=== PATIENT | male | born 1990 | race Caucasian/White ===

== ENCOUNTER 2016-02-22 21:36 | Emergency (ER) | payer OTHER ==
[2016-02-23] MEDS ORDERED: NORCO, ANEXSIA 5/325MG TABLET (HYDROcodone/ACETAMINOPHEN) As Ordered ONE (00:15)
[2016-02-23] MEDS ORDERED: METHOCARBAMOL 500 MG TAB As Ordered ONE (00:15)
--- NOTE | 2016-02-23 00:50 | REPUSA ---
CLINICAL HISTORY: Neck pain. TECHNIQUE: Multiple axial images were obtained through the cervical spine. Images were also reconstru cted in coronal and sagittal planes. The study was performed without IV contrast. COMMENTS: There is no fracture or spondylolisthesis visualized. The paraspinal soft tissues are unremarkable. T here are no lytic or blastic lesions. Straightening of cervical lordosis is seen, suggesting muscular spasm. There is evidence of minimal m ultilevel disk disease, demonstrated by minimal osteophytosis and endplate sclerosis. No significant disk herniation is noted at any level. Canal and foramina remain patent. IMPRESSION: 1. No fracture or spondylolisthesis. 2. Straightening of cervical lordosis is seen, suggesting muscular spasm. 3. Minimal multilevel spondylosis. Thank you for your kind referral of this patient.
[2016-02-23] MEDS ORDERED: KETOROLAC 30 MG/ML VIAL (J1885) As Ordered ONE (02:11)
--- NOTE | 2016-02-23 02:48 | EDDOCDS ---
Physician Documentation [facility] Name: Dmitry Alan Age: 25 yrs Sex: Male : 1990 Arrival Date: 02/22/2016 Time: 21:36 Bed I5 / M5 Private MD: Other - Complete Info On Cds Disposition: 02/23/16 02:43 Discharged to Home/Self Care. Impression: Unspecified injury of head, Cervicalgia, Sprain of unspecified parts of right shoulder girdle. - Condition is Stable. - Discharge Instructions: Head Injury, Adult, Shoulder Pain, Cervical Sprain. - Prescriptions for Robaxin 500 mg Oral Tablet - take 2 tablet by ORAL route every 6 hours As needed; 40 tablet. Ultram 50 mg Oral Tablet - take 1 tablet by ORAL route every 6 hours As needed MDD: 4 tabs; 20 tablet. - Medication Reconciliation, Local Pharmacy Hours form. - Follow up: Radha Rowe [facility]; When: 1 - 2 days; Reason: Recheck today's complaints, Continuance of care. - Problem is new. - Symptoms have improved. - Notes: USE MEDICATIONS INSTRUCTED, FOLLOW UP WITH YOUR DOCTOR, RETURN TO THE ER IF THE SYMPTOMS WORSEN OR BECOME CONCERNING Historical: - Allergies: no known allergies; - Home Meds: 1. none - PMHx: none; - PSHx: none; - Social history: Smoking status: Patient states was never smoker of tobacco. No barriers to communication noted, The patient speaks fluent Canadian, Speaks appropriately for age. - Family history: Not pertinent. - : The pt / caregiver states he / she is not on anticoagulants. Home medication list is obtained from the patient. - Exposure Risk Screening:: None identified. Vital Signs: 02/21 21:37 BP 134 / 59; Pulse 60; Resp 18 S; Temp 97.9(O); Pulse Ox 98% on R/A; Weight 88.9 kg / gr2 195.99 lbs (R); Height 5 ft. 9 in. (175.26 cm) (R); Pain 8/10; 02/22 00:19 Pain 8/10; cp1 02:16 Pain 7/10; cp1 02:47 BP 136 / 68; Pulse 68; Resp 20; Temp 98.0(O); Pulse Ox 99% on R/A; Pain 2/10; jmb 02/21 21:37 Body Mass Index 28.94 (88.90 kg, 175.26 cm) gr2 MDM: 00:03 Financial registration complete. pm4 00:04 [facility] Payment Agreement was scanned into [employer]. and attached to record. pm4 00:12 Apply Iliana Collar to Patient. ordered. ck7 00:12 HYDROcodone-acetaminophen 5 mg-325 mg 1 tabs PO once ordered. ck7 00:12 Methocarbamol 1 grams PO once ordered. ck7 00:13 CT Head Without Contrast Ordered. EDMS 00:13 CT Spine,Cervical W/o Contrast Ordered. EDMS 00:17 Shoulder, Complete Ordered. EDMS 02:09 ketorolac 60 mg IM once ordered. ck7 Administered Medications: 00:18 Drug: HYDROcodone-acetaminophen 1 tabs [hydrocodone 5 mg-acetaminophen 325 mg tablet (1 cp1 tabs)] Route: PO; 02:01 Follow up: Response: No significant change. cp1 00:18 Drug: Methocarbamol 1 grams [methocarbamol 500 mg tablet (2 tabs)] Route: PO; cp1 02:00 Follow up: Response: No significant change. cp1 02:15 Drug: ketorolac 60 mg [ketorolac 30 mg/mL (1 mL) injection solution (2 mL)] Route: IM; cp1 Site: right deltoid; Signatures: Dispatcher [employer] EDMS Cortney Hutson,RN Richar Lipscomb, RPA-C RPA-Cck7 Osman Metcalf RN RN jmb Montondo, Paul, Reg Reg pm4 Torri Vera LPN cp1 The chart was reviewed and I authenticate all verbal orders and agree with the evaluation and treatment provided.Attachments: 00:04 [facility] Payment Agreement pm4 MTDD
--- NOTE | 2016-02-23 02:48 | EDDOCDS ---
Nurse's Notes [facility] Name: Dmitry Alan Age: 25 yrs Sex: Male : 1990 Arrival Date: 02/22/2016 Time: 21:36 Bed I5 / M5 Private MD: Other - Complete Info On Cds Diagnosis: Unspecified injury of head;Cervicalgia;Sprain of unspecified parts of right shoulder girdle Presentation: 02/21 21:42 Presenting complaint: Patient states: doing a handstand and fell landing on his head. pml pain in right shoulder and neck denies LOC. Adult Sepsis Screening: The patient does not have new or worsening altered mentation. Patient's respiratory rate is less than 22. Systolic blood pressure is greater than 100. Patient has a qSOFA score of 0- Negative Sepsis Screen. Suicide/Homicide risk assessment- the patient denies having any suicidal and/or homicidal ideations and does not present with any other emotional, behavioral or mental health complaints. 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 Transition of care: patient was not received from another setting of care. 21:42 Acuity: ROXANN Level 4 pml 21:42 Method Of Arrival: Walkin/Carried/Asstd pml Triage Assessment: 21:43 General: Appears in no apparent distress, Behavior is appropriate for age, cooperative. pml Pain: Location: anterior aspect of right shoulder and right side of neck. HIV screening NA for this visit Offered previously. Musculoskeletal: Circulation, motion, and sensation intact Capillary refill < 3 seconds. Historical: - Allergies: no known allergies; - Home Meds: 1. none - PMHx: none; - PSHx: none; - Social history: Smoking status: Patient states was never smoker of tobacco. No barriers to communication noted, The patient speaks fluent Beninese, Speaks appropriately for age. - Family history: Not pertinent. - : The pt / caregiver states he / she is not on anticoagulants. Home medication list is obtained from the patient. - Exposure Risk Screening:: None identified. Screenin/17 00:16 Screening information is obtained from the patient. Fall risk: At risk due to prior [facility] history of falls. Assistance ADL's: requires no assistance with activities of daily living. Abuse/DV Screen: The patient / caregiver reports he/she is: not in a situation that causes fear, pain or injury. Nutritional screening: No deficits noted. home support is adequate. 02:44 Advance Directives: Currently, there is no health care proxy. There is no active DNR jmb order. There is no living will. There is no Power of Field Representative/Health Education. Assessment: 00:16 General: Appears uncomfortable, Behavior is appropriate for age, cooperative. Pain: jmb Location: neck and right arm and anterior aspect of right shoulder and right side of neck Pain currently is 7 out of 10 on a pain scale. Neurological: Level of Consciousness is awake, alert, obeys commands, Oriented to person, place, time, Gifted Teacher are equal bilaterally Speech is normal, Facial symmetry appears normal, Facial symmetry: tongue is midline. Cardiovascular: Capillary refill < 3 seconds Heart tones present Pulses are all present. Rhythm is regular. Respiratory: Airway is patent Respiratory effort is even, unlabored, Respiratory pattern is regular, symmetrical, Breath sounds are clear bilaterally. GI: Abdomen is non- distended Bowel sounds present X 4 quads. Abd is soft and non tender X 4 quads. :. Derm: Skin is pink, warm & dry. Musculoskeletal: Range of motion intact in all extremities. 01:23 General: Appears in no apparent distress, comfortable, Behavior is appropriate for age, jmb cooperative. Neurological: Level of Consciousness is awake, alert, obeys commands, Oriented to person, place, time. Respiratory: Airway is patent Respiratory effort is even, unlabored, Respiratory pattern is regular, symmetrical. 02:44 General: Patient instructed on discharge instructions. Patient asked if there were any b questions regarding discharge, patient stated no. Patient signed discharge instructions. Patient discharged in stable condition. . Vital Signs: 02/21 21:37 BP 134 / 59; Pulse 60; Resp 18 S; Temp 97.9(O); Pulse Ox 98% on R/A; Weight 88.9 kg gr2 (R); Height 5 ft. 9 in. (175.26 cm) (R); Pain 8/10; 02/22 00:19 Pain 8/10; cp1 02:16 Pain 7/10; cp1 02:47 BP 136 / 68; Pulse 68; Resp 20; Temp 98.0(O); Pulse Ox 99% on R/A; Pain 2/10; jmb 02/21 21:37 Body Mass Index 28.94 (88.90 kg, 175.26 cm) gr2 Vitals: 02/21 21:37 Log In Time: February 22, 2016 at 21:37. gr2 ED Course: 21:37 Patient visited by Nicole Borges. gr2 21:37 Other - Complete Info On Cds is Private Physician. gr2 21:37 Patient moved to Waiting gr2 21:39 Patient visited by Nicole Borges. gr2 21:39 Patient moved to Pre RCE gr2 21:43 Triage Initiated pml 21:44 Patient visited by Cortney Hutson RN. pml 23:38 Richar Burger RPA-C is PHCP. ck7 23:38 Jeevan Abreu DO is Attending Physician. ck7 23:38 Patient visited by Richar Burger RPA-C. ck7 23:38 Patient moved to Triage 3 cz 23:55 Patient name changed from Dmitry\S\J\S\Waqas\S\ to Dmitry\S\Fernando\S\Waqas. EDMS 02/22 00:04 [facility] Payment Agreement was scanned into [employer] and attached to record. pm4 00:09 Patient visited by Richar Burger RPA-C. ck7 00:11 Patient moved to I5 / M5 cz 00:16 The patient / caregiver is instructed regarding the plan of care and ED course. jmb 00:16 No IV's were initiated during this patient's visit. No procedures done that require jmb assistance. 00:18 Patient visited by Osman Metcalf RN. jmb 00:[address] cp1 00:25 Patient moved to Radiology epifanio 00:47 Patient moved to I5 / M5 epifanio 00:49 Patient visited by Richar Burger RPA-C. ck7 01:10 CT Head Without Contrast Returned. EDMS 01:10 CT Spine,Cervical W/o Contrast Returned. EDMS 01:23 Patient visited by Osman Metcalf RN. jmb 02:00 Patient visited by Torri Vera LPN. cp1 02:15 Patient visited by Torri Vera LPN. cp1 02:43 [facility] ck7 Administered Medications: 00:18 Drug: HYDROcodone-acetaminophen 1 tabs [hydrocodone 5 mg-acetaminophen 325 mg tablet (1 cp1 tabs)] Route: PO; 02:01 Follow up: Response: No significant change. cp1 00:18 Drug: Methocarbamol 1 grams [methocarbamol 500 mg tablet (2 tabs)] Route: PO; cp1 02:00 Follow up: Response: No significant change. cp1 02:15 Drug: ketorolac 60 mg [ketorolac 30 mg/mL (1 mL) injection solution (2 mL)] Route: IM; cp1 Site: right deltoid; Order Results: Radiology Order: CT Head Without Contrast Test: CT Head Without Contrast REASON FOR EXAMINATION: HEAD INJURY, R/O BLEED; ; CLINICAL HISTORY: Head trauma.; TECHNIQUE: Multiple axial brain CT scan sections were obtained from base to vertex without contrast a; dministration.; COMMENTS:; There is no evidence of skull fracture.; The study shows normal configuration of sella turcica. There are no intra or extra-axial collections.; There is no mass effect or midline shift. There is no evidence of hematoma formation. No hydrocephal; us is present. No abnormal calcifications are noted.; No significant abnormalities are seen either in the posterior fossa or supratentorial compartment.; The sinuses and mastoid air cells are patent.; IMPRESSION:; No evidence of acute intracranial pathology. No intracranial hemorrhage or skull fracture.; Thank you for your kind referral of this patient.; ; Radiology Order: CT Spine,Cervical W/o Contrast Test: CT Spine,Cervical W/o Contrast REASON FOR EXAMINATION: NECK INJURY, R/O FX; ; CLINICAL HISTORY: Neck pain.; TECHNIQUE: Multiple axial images were obtained through the cervical spine. Images were also reconstru; cted in coronal and sagittal planes. The study was performed without IV contrast.; COMMENTS:; There is no fracture or spondylolisthesis visualized. The paraspinal soft tissues are unremarkable. T; here are no lytic or blastic lesions.; Straightening of cervical lordosis is seen, suggesting muscular spasm. There is evidence of minimal m; ultilevel disk disease, demonstrated by minimal osteophytosis and endplate sclerosis.; No significant disk herniation is noted at any level. Canal and foramina remain patent.; IMPRESSION:; 1. No fracture or spondylolisthesis.; 2. Straightening of cervical lordosis is seen, suggesting muscular spasm.; 3. Minimal multilevel spondylosis.; Thank you for your kind referral of this patient.; ; Outcome: 02:43 Discharge ordered by Provider. ck7 02:44 Discharge Assessment: Patient awake, alert and oriented x 3. No cognitive and/or jmb functional deficits noted. Patient verbalized understanding of disposition instructions. Patient awake and alert. obeys commands, Oriented to person, place and time. Patient verbalized understanding of disposition instructions. Patient has no functional deficits. patient administered narcotics - no. The following High Risk Discharge criteria are identified: None. Discharged to home ambulatory, with significant other. Condition: stable Condition: improved. Discharge instructions given to patient, Instructed on discharge instructions, follow up and referral plans. medication usage, Demonstrated understanding of instructions, medications, Pt was receptive of discharge instructions/ teaching. Prescriptions given X 1. CT Study completed. Property sent home with patient. 02:48 Patient left the ED. gamal Signatures: Dispatcher [employer] EDMS Song Nuñez, Drew Russo RN, Cheryl, LPN LPN cp1 Cortney Hutson,RN Richar Lipscomb, RPA-C RPA-Cck7 Nicole Borges gr2 Osman Metcalf RN RN jmb Montondo, Paul, Reg Reg pm4 MTDD
--- NOTE | 2016-02-23 07:19 | REP ---
Clinical: Deformity and swelling . Technique: Internal rotation, external rotation, and Y view right shoulder . Findings: No acute fracture or dislocation. The acromioclavicular and glenohumeral joints are intact. No periarticular calcifications or degenerative changes are appreciated. Sub acromial space is normal. Surrounding soft tissues are unremarkable. Impression: Normal right shoulder radiographs. Signed by Alber Mcnamara MD 02/23/2016 07:10 A
--- NOTE | 2016-02-25 03:49 | EDDOCDS ---
Physician Documentation [facility] Name: Dmitry Alan Age: 25 yrs Sex: Male : 1990 Arrival Date: 02/22/2016 Time: 21:36 Bed I5 / M5 Private MD: Other - Complete Info On Cds Disposition: 02/23/16 02:43 Discharged to Home/Self Care. Impression: Unspecified injury of head, Cervicalgia, Sprain of unspecified parts of right shoulder girdle. - Condition is Stable. - Discharge Instructions: Head Injury, Adult, Shoulder Pain, Cervical Sprain. - Prescriptions for Robaxin 500 mg Oral Tablet - take 2 tablet by ORAL route every 6 hours As needed; 40 tablet. Ultram 50 mg Oral Tablet - take 1 tablet by ORAL route every 6 hours As needed MDD: 4 tabs; 20 tablet. - Medication Reconciliation, Local Pharmacy Hours form. - Follow up: Radha Rowe [facility]; When: 1 - 2 days; Reason: Recheck today's complaints, Continuance of care. - Problem is new. - Symptoms have improved. - Notes: USE MEDICATIONS INSTRUCTED, FOLLOW UP WITH YOUR DOCTOR, RETURN TO THE ER IF THE SYMPTOMS WORSEN OR BECOME CONCERNING Historical: - Allergies: no known allergies; - Home Meds: 1. none - PMHx: none; - PSHx: none; - Social history: Smoking status: Patient states was never smoker of tobacco. No barriers to communication noted, The patient speaks fluent Tristanian, Speaks appropriately for age. - Family history: Not pertinent. - : The pt / caregiver states he / she is not on anticoagulants. Home medication list is obtained from the patient. - Exposure Risk Screening:: None identified. Vital Signs: 02/21 21:37 BP 134 / 59; Pulse 60; Resp 18 S; Temp 97.9(O); Pulse Ox 98% on R/A; Weight 88.9 kg / gr2 195.99 lbs (R); Height 5 ft. 9 in. (175.26 cm) (R); Pain 8/10; 02/22 00:19 Pain 8/10; cp1 02:16 Pain 7/10; cp1 02:47 BP 136 / 68; Pulse 68; Resp 20; Temp 98.0(O); Pulse Ox 99% on R/A; Pain 2/10; jmb 02/21 21:37 Body Mass Index 28.94 (88.90 kg, 175.26 cm) gr2 MDM: 00:03 Financial registration complete. pm4 00:04 [facility] Payment Agreement was scanned into [employer] and attached to record. pm4 00:12 Apply Iliana Collar to Patient. ordered. ck7 00:12 HYDROcodone-acetaminophen 5 mg-325 mg 1 tabs PO once ordered. ck7 00:12 Methocarbamol 1 grams PO once ordered. ck7 00:13 CT Head Without Contrast Ordered. EDMS 00:13 CT Spine,Cervical W/o Contrast Ordered. EDMS 00:17 Shoulder, Complete Ordered. EDMS 02:09 ketorolac 60 mg IM once ordered. ck7 09:46 T-Sheet-- Draft Copy was scanned into [employer] and attached to record. gb Administered Medications: 00:18 Drug: HYDROcodone-acetaminophen 1 tabs [hydrocodone 5 mg-acetaminophen 325 mg tablet (1 cp1 tabs)] Route: PO; 02:01 Follow up: Response: No significant change. cp1 00:18 Drug: Methocarbamol 1 grams [methocarbamol 500 mg tablet (2 tabs)] Route: PO; cp1 02:00 Follow up: Response: No significant change. cp1 02:15 Drug: ketorolac 60 mg [ketorolac 30 mg/mL (1 mL) injection solution (2 mL)] Route: IM; cp1 Site: right deltoid; Signatures: Dispatcher [employer] EDCT Tosin Muniz, Reg Reg gb Cortney HutsonRN Richar Lipscomb, MARCK-C RPA-Cck7 Osman Metcalf RN RN jmb Montondo, Paul, Reg Reg pm4 Torri Vera LPN cp1 The chart was reviewed and I authenticate all verbal orders and agree with the evaluation and treatment provided.Attachments: 00:04 [facility] Payment Agreement pm4 09:46 T-Sheet-- Draft Copy gb Chart Complete MTDD
--- NOTE | 2016-02-25 03:49 | EDDOCDS ---
Physician Documentation [facility] Name: Dmitry Alan Age: 25 yrs Sex: Male : 1990 Arrival Date: 02/22/2016 Time: 21:36 Bed I5 / M5 Private MD: Other - Complete Info On Cds Disposition: 02/23/16 02:43 Discharged to Home/Self Care. Impression: Unspecified injury of head, Cervicalgia, Sprain of unspecified parts of right shoulder girdle. - Condition is Stable. - Discharge Instructions: Head Injury, Adult, Shoulder Pain, Cervical Sprain. - Prescriptions for Robaxin 500 mg Oral Tablet - take 2 tablet by ORAL route every 6 hours As needed; 40 tablet. Ultram 50 mg Oral Tablet - take 1 tablet by ORAL route every 6 hours As needed MDD: 4 tabs; 20 tablet. - Medication Reconciliation, Local Pharmacy Hours form. - Follow up: Radha Rowe [facility]; When: 1 - 2 days; Reason: Recheck today's complaints, Continuance of care. - Problem is new. - Symptoms have improved. - Notes: USE MEDICATIONS INSTRUCTED, FOLLOW UP WITH YOUR DOCTOR, RETURN TO THE ER IF THE SYMPTOMS WORSEN OR BECOME CONCERNING Historical: - Allergies: no known allergies; - Home Meds: 1. none - PMHx: none; - PSHx: none; - Social history: Smoking status: Patient states was never smoker of tobacco. No barriers to communication noted, The patient speaks fluent Luxembourger, Speaks appropriately for age. - Family history: Not pertinent. - : The pt / caregiver states he / she is not on anticoagulants. Home medication list is obtained from the patient. - Exposure Risk Screening:: None identified. Vital Signs: 02/21 21:37 BP 134 / 59; Pulse 60; Resp 18 S; Temp 97.9(O); Pulse Ox 98% on R/A; Weight 88.9 kg / gr2 195.99 lbs (R); Height 5 ft. 9 in. (175.26 cm) (R); Pain 8/10; 02/22 00:19 Pain 8/10; cp1 02:16 Pain 7/10; cp1 02:47 BP 136 / 68; Pulse 68; Resp 20; Temp 98.0(O); Pulse Ox 99% on R/A; Pain 2/10; jmb 02/21 21:37 Body Mass Index 28.94 (88.90 kg, 175.26 cm) gr2 MDM: 00:03 Financial registration complete. pm4 00:04 [facility] Payment Agreement was scanned into [employer] and attached to record. pm4 00:12 Apply Iliana Collar to Patient. ordered. ck7 00:12 HYDROcodone-acetaminophen 5 mg-325 mg 1 tabs PO once ordered. ck7 00:12 Methocarbamol 1 grams PO once ordered. ck7 00:13 CT Head Without Contrast Ordered. EDMS 00:13 CT Spine,Cervical W/o Contrast Ordered. EDMS 00:17 Shoulder, Complete Ordered. EDMS 02:09 ketorolac 60 mg IM once ordered. ck7 09:46 T-Sheet-- Draft Copy was scanned into [employer] and attached to record. gb Administered Medications: 00:18 Drug: HYDROcodone-acetaminophen 1 tabs [hydrocodone 5 mg-acetaminophen 325 mg tablet (1 cp1 tabs)] Route: PO; 02:01 Follow up: Response: No significant change. cp1 00:18 Drug: Methocarbamol 1 grams [methocarbamol 500 mg tablet (2 tabs)] Route: PO; cp1 02:00 Follow up: Response: No significant change. cp1 02:15 Drug: ketorolac 60 mg [ketorolac 30 mg/mL (1 mL) injection solution (2 mL)] Route: IM; cp1 Site: right deltoid; Signatures: Dispatcher [employer] EDCA Tosin Muniz, Reg Reg gb Cortney HutsonRN Richar Lipscmob, MARCK-C RPA-Cck7 Osman Metcalf RN RN jmb Montondo, Paul, Reg Reg pm4 Torir Vera LPN cp1 The chart was reviewed and I authenticate all verbal orders and agree with the evaluation and treatment provided.Attachments: 00:04 [facility] Payment Agreement pm4 09:46 T-Sheet-- Draft Copy gb Chart Complete MTDD
--- NOTE | 2016-02-25 03:49 | EDDOCDS ---
Nurse's Notes [facility] Name: Dmitry Alan Age: 25 yrs Sex: Male : 1990 Arrival Date: 02/22/2016 Time: 21:36 Bed I5 / M5 Private MD: Other - Complete Info On Cds Diagnosis: Unspecified injury of head;Cervicalgia;Sprain of unspecified parts of right shoulder girdle Presentation: 02/21 21:42 Presenting complaint: Patient states: doing a handstand and fell landing on his head. pml pain in right shoulder and neck denies LOC. Adult Sepsis Screening: The patient does not have new or worsening altered mentation. Patient's respiratory rate is less than 22. Systolic blood pressure is greater than 100. Patient has a qSOFA score of 0- Negative Sepsis Screen. Suicide/Homicide risk assessment- the patient denies having any suicidal and/or homicidal ideations and does not present with any other emotional, behavioral or mental health complaints. 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 Transition of care: patient was not received from another setting of care. 21:42 Acuity: ROXANN Level 4 pml 21:42 Method Of Arrival: Walkin/Carried/Asstd pml Triage Assessment: 21:43 General: Appears in no apparent distress, Behavior is appropriate for age, cooperative. pml Pain: Location: anterior aspect of right shoulder and right side of neck. HIV screening NA for this visit Offered previously. Musculoskeletal: Circulation, motion, and sensation intact Capillary refill < 3 seconds. Historical: - Allergies: no known allergies; - Home Meds: 1. none - PMHx: none; - PSHx: none; - Social history: Smoking status: Patient states was never smoker of tobacco. No barriers to communication noted, The patient speaks fluent Bahamian, Speaks appropriately for age. - Family history: Not pertinent. - : The pt / caregiver states he / she is not on anticoagulants. Home medication list is obtained from the patient. - Exposure Risk Screening:: None identified. Screenin/17 00:16 Screening information is obtained from the patient. Fall risk: At risk due to prior [facility] history of falls. Assistance ADL's: requires no assistance with activities of daily living. Abuse/DV Screen: The patient / caregiver reports he/she is: not in a situation that causes fear, pain or injury. Nutritional screening: No deficits noted. home support is adequate. 02:44 Advance Directives: Currently, there is no health care proxy. There is no active DNR jmb order. There is no living will. There is no Power of Rn Embedded. Assessment: 00:16 General: Appears uncomfortable, Behavior is appropriate for age, cooperative. Pain: jmb Location: neck and right arm and anterior aspect of right shoulder and right side of neck Pain currently is 7 out of 10 on a pain scale. 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 Cardiovascular: Capillary refill < 3 seconds Heart tones present Pulses are all present. Rhythm is regular. Respiratory: Airway is patent Respiratory effort is even, unlabored, Respiratory pattern is regular, symmetrical, Breath sounds are clear bilaterally. GI: Abdomen is non- distended Bowel sounds present X 4 quads. Abd is soft and non tender X 4 quads. :. Derm: Skin is pink, warm & dry. Musculoskeletal: Range of motion intact in all extremities. 01:23 General: Appears in no apparent distress, comfortable, Behavior is appropriate for age, jmb cooperative. Neurological: Level of Consciousness is awake, alert, obeys commands, Oriented to person, place, time. Respiratory: Airway is patent Respiratory effort is even, unlabored, Respiratory pattern is regular, symmetrical. 02:44 General: Patient instructed on discharge instructions. Patient asked if there were any b questions regarding discharge, patient stated no. Patient signed discharge instructions. Patient discharged in stable condition. . Vital Signs: 02/21 21:37 BP 134 / 59; Pulse 60; Resp 18 S; Temp 97.9(O); Pulse Ox 98% on R/A; Weight 88.9 kg gr2 (R); Height 5 ft. 9 in. (175.26 cm) (R); Pain 8/10; 02/22 00:19 Pain 8/10; cp1 02:16 Pain 7/10; cp1 02:47 BP 136 / 68; Pulse 68; Resp 20; Temp 98.0(O); Pulse Ox 99% on R/A; Pain 2/10; jmb 02/21 21:37 Body Mass Index 28.94 (88.90 kg, 175.26 cm) gr2 Vitals: 02/21 21:37 Log In Time: February 22, 2016 at 21:37. gr2 ED Course: 21:37 Patient visited by Nicole Borges. gr2 21:37 Other - Complete Info On Cds is Private Physician. gr2 21:37 Patient moved to Waiting gr2 21:39 Patient visited by Nicole Borges. gr2 21:39 Patient moved to Pre RCE gr2 21:43 Triage Initiated pml 21:44 Patient visited by Cortney Hutson RN. pml 23:38 Richar Burger RPA-C is PHCP. ck7 23:38 Jeevan Abreu DO is Attending Physician. ck7 23:38 Patient visited by Richar Burger RPA-C. ck7 23:38 Patient moved to Triage 3 cz 23:55 Patient name changed from Dmitry\S\J\S\Waqas\S\ to Dmitry\S\Fernando\S\Waqas. EDMS 02/22 00:04 [facility] Payment Agreement was scanned into [employer] and attached to record. pm4 00:09 Patient visited by Richar Burger RPA-C. ck7 00:11 Patient moved to I5 / M5 cz 00:16 The patient / caregiver is instructed regarding the plan of care and ED course. jmb 00:16 No IV's were initiated during this patient's visit. No procedures done that require jmb assistance. 00:18 Patient visited by Osman Metcalf RN. jmb 00:[address] cp1 00:25 Patient moved to Radiology epifanio 00:47 Patient moved to I5 / M5 epifanio 00:49 Patient visited by Richar Burger RPA-C. ck7 01:10 CT Head Without Contrast Returned. EDMS 01:10 CT Spine,Cervical W/o Contrast Returned. EDMS 01:23 Patient visited by Osman Metcalf RN. jmb 02:00 Patient visited by Torri Vera LPN. cp1 02:15 Patient visited by Torri Vera LPN. cp1 02:43 [facility]. ck7 07:33 Shoulder, Complete Returned. EDMS 09:46 T-Sheet-- Draft Copy was scanned into [employer] and attached to record. gb Administered Medications: 00:18 Drug: HYDROcodone-acetaminophen 1 tabs [hydrocodone 5 mg-acetaminophen 325 mg tablet (1 cp1 tabs)] Route: PO; 02:01 Follow up: Response: No significant change. cp1 00:18 Drug: Methocarbamol 1 grams [methocarbamol 500 mg tablet (2 tabs)] Route: PO; cp1 02:00 Follow up: Response: No significant change. cp1 02:15 Drug: ketorolac 60 mg [ketorolac 30 mg/mL (1 mL) injection solution (2 mL)] Route: IM; cp1 Site: right deltoid; Order Results: Radiology Order: CT Head Without Contrast Test: CT Head Without Contrast REASON FOR EXAMINATION: HEAD INJURY, R/O BLEED; ; CLINICAL HISTORY: Head trauma.; TECHNIQUE: Multiple axial brain CT scan sections were obtained from base to vertex without contrast a; dministration.; COMMENTS:; There is no evidence of skull fracture.; The study shows normal configuration of sella turcica. There are no intra or extra-axial collections.; There is no mass effect or midline shift. There is no evidence of hematoma formation. No hydrocephal; us is present. No abnormal calcifications are noted.; No significant abnormalities are seen either in the posterior fossa or supratentorial compartment.; The sinuses and mastoid air cells are patent.; IMPRESSION:; No evidence of acute intracranial pathology. No intracranial hemorrhage or skull fracture.; Thank you for your kind referral of this patient.; ; Radiology Order: CT Spine,Cervical W/o Contrast Test: CT Spine,Cervical W/o Contrast REASON FOR EXAMINATION: NECK INJURY, R/O FX; ; CLINICAL HISTORY: Neck pain.; TECHNIQUE: Multiple axial images were obtained through the cervical spine. Images were also reconstru; cted in coronal and sagittal planes. The study was performed without IV contrast.; COMMENTS:; There is no fracture or spondylolisthesis visualized. The paraspinal soft tissues are unremarkable. T; here are no lytic or blastic lesions.; Straightening of cervical lordosis is seen, suggesting muscular spasm. There is evidence of minimal m; ultilevel disk disease, demonstrated by minimal osteophytosis and endplate sclerosis.; No significant disk herniation is noted at any level. Canal and foramina remain patent.; IMPRESSION:; 1. No fracture or spondylolisthesis.; 2. Straightening of cervical lordosis is seen, suggesting muscular spasm.; 3. Minimal multilevel spondylosis.; Thank you for your kind referral of this patient.; ; Radiology Order: Shoulder, Complete Test: Shoulder, Complete REASON FOR EXAMINATION: Deformity/Swelling; Clinical: Deformity and swelling .; ; Technique: Internal rotation, external rotation, and Y view right shoulder .; ; Findings:; No acute fracture or dislocation. The acromioclavicular and glenohumeral joints; are intact. No periarticular calcifications or degenerative changes are; appreciated. Sub acromial space is normal. Surrounding soft tissues are; unremarkable.; ; Impression:; Normal right shoulder radiographs.; ; ; Signed by; Alber Mcnamara MD 02/23/2016 07:10 A; Outcome: 02:43 Discharge ordered by Provider. ck7 02:44 Discharge Assessment: Patient awake, alert and oriented x 3. No cognitive and/or jmb functional deficits noted. Patient verbalized understanding of disposition instructions. Patient awake and alert. obeys commands, Oriented to person, place and time. Patient verbalized understanding of disposition instructions. Patient has no functional deficits. patient administered narcotics - no. The following High Risk Discharge criteria are identified: None. Discharged to home ambulatory, with significant other. Condition: stable Condition: improved. Discharge instructions given to patient, Instructed on discharge instructions, follow up and referral plans. medication usage, Demonstrated understanding of instructions, medications, Pt was receptive of discharge instructions/ teaching. Prescriptions given X 1. CT Study completed. Property sent home with patient. 02:48 Patient left the ED. gamal Signatures: Dispatcher [employer] EDMS Song Nuñez RN RN cz Bartlett, Floyd fab Barnhardt, Gloria, Reg Reg Torri Montana,BUTCHER BUTCHER cp1 Cortney Hutson RN RN pml Kwaczala, Christopher, RPA-C [id number] Nicole Borges gr2 Osman Metcalf RN RN jmb Montondo, Ihsan, Reg Reg pm4 Chart Complete MTDD
== END 2016-02-23 02:48 | disposition home or self-care (01) ==
LOC: M ED 21:36
DX: S09.90XA Unspecified injury of head, initial encounter (principal); M54.2 Cervicalgia; S43.401A Unspecified sprain of right shoulder joint, initial encounter; W01.198A Fall on same level from slipping, tripping and stumbling with subsequent striking against other object, initial encounter; Y92.019 Unspecified place in single-family (private) house as the place of occurrence of the external cause; Y93.89 Activity, other specified; Y99.9 Unspecified external cause status
CPT/HCPCS: 70450; 72125; 73030; 96372; 99284; J1885